=== PATIENT | female | born 1935 | race Caucasian/White ===

== ENCOUNTER 2017-03-23 18:50 | Inpatient (IN) | payer MEDICARE, OTHER ==
[2017-03-23 19:41] VITALS: BP 125/68
[2017-03-23] MEDS ORDERED: Magnesium Hydroxide (MOM) 30 mL UDC PO PRN (19:51)
[2017-03-23] MEDS ORDERED: Maalox 30 mL Cup PO PRN (19:51)
[2017-03-24 07:18] LABS: ANION GAP 10.4 (7.0-16.0); BUN - UREA NITROGEN 14 mg/dL (7-25); CALCIUM SERUM 9.6 mg/dL (8.6-10.3); CARBON DIOXIDE 28.4 mEq/L (21.0-31.0); CHLORIDE 104 mEq/L (98-107); GLUCOSE 98 mg/dL (70-105); POTASSIUM SERUM 3.8 mEq/L (3.5-5.1); SODIUM SERUM 139 mEq/L (136-145); VALPROIC ACID < 10.0 ug/mL (50.0-100.0)
[2017-03-24 07:28] LABS: % BASOPHILS 0.1 % (0.0-2.0); % EOSINOPHILS 4.2 % (0.0-5.0); % LYMPHOCYTES 25.3 % (20.0-50.0); % NEUTROPHILS 61.4 % (40.0-80.0); EOSINOPHILE ABSOLUTE 0.2 Th/cmm (0.1-0.4); HEMATOCRIT 42.8 % (41.0-60); HEMOGLOBIN 13.9 gm/dL (12-16); LYMPHOCYTE ABSOLUTE 1.1 Th/cmm (1.5-3.0); MEAN CELL VOLUME 94.3 fl (81-100); MEAN CORPUSCULAR HEMOGLOBIN 30.6 pg (27.0-31.0); MEAN CORPUSCULAR HGB CONC 32.4 pg (28.0-36.0); MEAN PLATELET VOLUME 8.6 fl; MONOCYTE ABSOLUTE 0.4 Th/cmm (0.3-1.0); NEUTROPHILE ABSOLUTE 2.6 Th/cmm (1.8-8.0); PLATELET COUNT 275 Th/cmm (150-400); RED BLOOD COUNT 4.54 Mil/cmm (3.80-5.20); RED CELL DISTRIBUTION WIDTH 13.1 % (11.5-20.0); WHITE BLOOD COUNT 4.3 Th/cmm (4.8-10.8)
[2017-03-24] MEDS: Multivitamin Tab PO SCH (09:24)
[2017-03-24] MEDS: Atorvastatin Calcium 10 MG TAB PO SCH (21:52)
[2017-03-24 21:57] LABS: A1C % 5.9 % (4.0-6.0)
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
[2017-03-25] MEDS: Multivitamin Tab PO SCH (09:51)
[2017-03-25 10:44] LABS: CHOLESTEROL 165 mg/dL (<200); HDL -HIGH DENSITY LIPOPROTEIN 51 mg/dL (23-92); TRIGLYCERIDES 99 mg/dL (<150)
--- NOTE | 2017-03-25 19:11 | Consultation ---
DATE OF CONSULTATION: 03/24/2017 INITIAL PSYCHIATRIC EVALUATION CHIEF COMPLAINT: "Why I'm here." HISTORY OF PRESENT ILLNESS AND JUSTIFICATION FOR ADMISSION: Brought in here, she is an 81-year-old with history of dementia, recently hallucinating, impaired and delusional. Today on [id number] evaluation extremely poor historian, unable to give much information. She mostly just perseverates as she needs to go somewhere, but she does not know exactly where she needs to be at, easily derails and thus not able to give much information. PAST PSYCHIATRIC HISTORY: Hospitalizations; unknown. PAST MEDICAL HISTORY: Pending medical evaluation, labs from the outside hospital. CT of the head unremarkable. MRI of the brain unremarkable. PAST PSYCHIATRIC HISTORY: Dementia. CURRENT MEDICATIONS: Include quetiapine 125 mg a day, benazepril 10 mg a day. FAMILY HISTORY: Unknown. PSYCHOSOCIAL ENVIRONMENTAL HISTORY: Denies any alcohol or illicit drug use. No sexual or physical or verbal abuse. MENTAL STATUS EXAMINATION: Easily irritable, disorganized, agitated, needing a lot of redirection. Poor insight, judgment and impulse control. Strength redirectable. Weaknesses: Poor coping skills. PRIMARY DIAGNOSIS: Dementia with behavior disturbance with psychosis. SECONDARY DIAGNOSIS: None. MEDICAL DIAGNOSIS: Medical evaluation pending. ASSESSMENT AND PLAN: An 81-year-old female, severely demented, aggressive, unable to formulate a plan. We will continue with Seroquel to target the patient's severe hallucination that she is experiencing. Primary estimated stay between 5-10 days. DISCHARGE CRITERIA: The patient is to demonstrate euthymic mood. We will obtain more collateral baseline information. [facility]# [id number]
[2017-03-25] MEDS: Atorvastatin Calcium 10 MG TAB PO SCH (20:35)
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
[2017-03-26] MEDS: Multivitamin Tab PO SCH (08:33)
[2017-03-26] MEDS: Atorvastatin Calcium 10 MG TAB PO SCH (20:58)
--- NOTE | 2017-03-26 23:11 | Progress Notes ---
DATE: 03/26/[address] Arriaga. Case was discussed with staff of the patient, reviewed records. This is an 81-year-old female who was admitted on the 03/23/2017 because of hallucination, delusional. The patient was a poor historian, unable to give much information. She perseverates, does not know exactly where she needs to be and she was dwelled easily, very poor insight. The patient continues to be disorganized, disheveled, malodorous, in and out. Continues to be unpredictable, impulsive, needing redirection. She isolates herself in the room. She is compliant with the medication, no side effects. She is on Aricept 10 mg at bedtime, multivitamin and Seroquel 25 mg a day with no side effects, no sedation, no nausea, and no extrapyramidal symptoms. We will continue outpatient group therapy, milieu therapy, adjust medication as needed. JOB# [id number]
[2017-03-27] MEDS: Multivitamin Tab PO SCH (08:33)
--- NOTE | 2017-03-27 16:19 | Progress Notes ---
DATE: 03/27/[address] Arriaga. Case was discussed with staff of the patient, reviewed records. The patient continues to be unpredictable, impulsive, continues to be a poor historian. The patient continues to have poor insight, disorganized, consisting unable to make safe plan for self-care, isolate herself. She has been compliant for the medication with no side effects, no sedation, no nausea, no extrapyramidal symptoms. We will continue to work with the patient in group therapy, milieu therapy, adjust medication as needed. JOB# [id number]
[2017-03-27] MEDS: Atorvastatin Calcium 10 MG TAB PO SCH (21:33)
[2017-03-28] MEDS: Multivitamin Tab PO SCH (08:42)
[2017-03-28] MEDS: Atorvastatin Calcium 10 MG TAB PO SCH (20:56)
--- NOTE | 2017-03-29 06:20 | Progress Notes ---
DATE: 03/28/2017 Chart reviewed and the patient interviewed. Also discussed the patient's condition with the staff and reviewed records and labs. The patient is manicky and hyper today. During my interview, the patient continuously was dancing and shaky and with pressured speech and hypertalkative. The patient also is still confused and she is still restless and needs lots of redirections. She also is still easily agitated and easily irritable. Otherwise, the patient is compliant with taking her medications with no side effect of medications. ASSESSMENT: The patient is still confused and manic. TREATMENT PLAN: Continue Aricept and Seroquel same dose. Also, continue to monitor her behavior and work on behavior modification. JOB# [id number]
[2017-03-29] MEDS: Multivitamin Tab PO SCH (09:22)
[2017-03-29] MEDS: Atorvastatin Calcium 10 MG TAB PO SCH (21:21)
[2017-03-30] MEDS: Multivitamin Tab PO SCH (09:29)
[2017-03-30] MEDS: Atorvastatin Calcium 10 MG TAB PO SCH (21:21)
--- NOTE | 2017-03-31 01:03 | Progress Notes ---
DATE: 03/29/2017 SUBJECTIVE: Chart reviewed and the patient interviewed. Also discussed the patient's condition with the staff and reviewed records and labs. The patient is still severely suspicious and still paranoid. The patient also is still confused and she does not think that she is in the hospital and she does not think that she needs to be in the hospital. She also keeps looking from the window in her room, thinking that someone outside the window is watching her. She also is still isolative and not talking much. The patient also is still easily agitated and she is paranoid and wants to be left alone. Otherwise, the patient is compliant with taking her medications with no side effects of medications. ASSESSMENT: The patient is still suspicious and paranoid and still psychotic. TREATMENT PLAN: We will continue to monitor her behavior and her condition closely. Also, continue psychotropic medications and followup. JOB# [id number]
[2017-03-31] MEDS: Multivitamin Tab PO SCH (09:10)
--- NOTE | 2017-03-31 17:06 | Progress Notes ---
DATE: 03/30/2017 SUBJECTIVE: Chart reviewed and the patient interviewed. Also discussed the patient's condition with the staff and reviewed records and labs. The patient is still confused and she is still pacing up and down the unit and she is still wandering around the unit. She also is still restless and she is still in angry and in irritable mood. The patient also is interacting minimally with others and she is entering other patient's rooms in a confused state. Otherwise, the patient is compliant with taking her medications and the patient denies any side effects of medications. ASSESSMENT: The patient is still confused and psychotic and seems to be depressed. TREATMENT PLAN: Continue current medications and treatment plan. Continue to monitor her behavior closely. Also, continue to work on possible placement issue and followup. JOB# [id number]
[2017-03-31] MEDS: Atorvastatin Calcium 10 MG TAB PO SCH (20:35)
[2017-04-01] MEDS: Multivitamin Tab PO SCH (08:53)
[2017-04-01] MEDS: Atorvastatin Calcium 10 MG TAB PO SCH (21:27)
[2017-04-02] MEDS: Multivitamin Tab PO SCH (09:12)
--- NOTE | 2017-04-02 12:11 | Progress Notes ---
DATE: 03/31/2017 SUBJECTIVE: Chart reviewed and the patient interviewed. Also discussed the patient's condition with the staff and reviewed records and labs. The patient still wanders around the unit in a confused state. She also is still restless and easily agitated. The patient also is hyper-muslim. Otherwise, the patient is compliant with taking her medications with no side effects of medications. ASSESSMENT: The patient is still confused and agitated. TREATMENT PLAN: Continue to monitor her behavior and her condition closely. Also, continue to work on her ineffective coping and continue to follow up. [facility]# [id number]
[2017-04-02] MEDS: Atorvastatin Calcium 10 MG TAB PO SCH (21:40)
[2017-04-03] MEDS: Multivitamin Tab PO SCH (09:56)
[2017-04-03] MEDS: Atorvastatin Calcium 10 MG TAB PO SCH (20:41)
--- NOTE | 2017-04-04 07:25 | Progress Notes ---
DATE: 04/01/2017 SUBJECTIVE: Chart reviewed and the patient interviewed. I also discussed the patient's condition with the staff and reviewed records and labs. The patient seems to be calmer than before. The patient also has been cooperative with care. She is still confused and forgetful and needs lots of redirection, but at the same time, she is less agitated and less irritable. She also has been compliant with taking her medications with no side effects of medications. ASSESSMENT: The patient showed some improvement. TREATMENT PLAN: Continue to monitor her behavior and her condition closely. Also, continue adjusting psychotropic medications and work on behavioral modification. JOB# [id number]
[2017-04-04] MEDS: Multivitamin Tab PO SCH (08:58)
[2017-04-04] MEDS: Atorvastatin Calcium 10 MG TAB PO SCH (21:22)
--- NOTE | 2017-04-05 00:06 | Progress Notes ---
DATE: 04/02/2017 SUBJECTIVE: Chart reviewed and the patient interviewed. Also discussed the patient's condition with the staff and reviewed records and labs. The patient is still confused and forgetful. The patient also is still agitated and she is still in irritable mood. She also still needs constant redirections. The patient also is restless and agitated. Otherwise, the patient is compliant with taking her medications with no side effects of medications. ASSESSMENT: The patient is confused and needs lots of redirections. TREATMENT PLAN: Continue monitoring her behavior and her condition closely. Also, continue adjusting psychotropic medications and followup. JOB# [id number]
[2017-04-05] MEDS: Multivitamin Tab PO SCH (09:06)
[2017-04-05] MEDS: Atorvastatin Calcium 10 MG TAB PO SCH (21:49)
[2017-04-06] MEDS: Multivitamin Tab PO SCH (08:09)
--- NOTE | 2017-04-06 09:55 | Progress Notes ---
DATE: 04/03/2017 SUBJECTIVE: Chart reviewed and the patient interviewed. Also discussed the patient's condition with the staff and reviewed records and labs. The patient is still forgetful and confused. The patient also needs constant redirections. The patient also is still agitated, but it seems that her agitation slightly less than before. The patient also is compliant with taking her medications with no side effect of medications. ASSESSMENT: The patient is still confused, but less agitated. TREATMENT PLAN: Continue to monitor her behavior and her condition closely. Also, working with transplant case manager in regard to placement issue and discharge plans. JOB# [id number]
--- NOTE | 2017-04-06 11:40 | Progress Notes ---
DATE: SUBJECTIVE: Chart reviewed and the patient interviewed. The patient also discussed the patient's condition with the staff and reviewed records and labs. The patient is still confused and she is still wandering on and off. The patient seems to be slightly calmer and she is more pleasant and cooperative. The patient also started ____ compliance taking her medications with no side effect of medications. ASSESSMENT: The patient is still confused and seems to be depressed. TREATMENT PLAN: Continue monitoring her behavior and her condition closely. Also, adjusting psychotropic medications and followup. [facility]# [id number]
--- NOTE | 2017-04-06 12:46 | Progress Notes ---
DATE: 04/05/2017 SUBJECTIVE: Chart reviewed and the patient interviewed. Also discussed the patient's condition with the staff and reviewed records and labs. The patient continued to be calm and cooperative. The patient also seems to be quieter and less irritable and less agitated. She also is interacting more. The patient denies any intention to harm herself or others and she seems to be more pleasant. Otherwise, the patient is compliant with taking her medications. ASSESSMENT: The patient is less depressed and less psychotic. TREATMENT PLAN: Continue to monitor her behavior and her condition closely. Also, continue adjusting psychotropic medications and working on discharge plans and placement issue. [facility]# [id number]
--- NOTE | 2017-04-06 19:54 | Progress Notes ---
DATE: SUBJECTIVE: Chart reviewed and the patient interviewed. Also discussed the patient's condition with the staff and reviewed records and labs. The patient is still agitated and she is suspicious and paranoid. The patient also is restless and she has difficulty following staff directions and she is still resisting care. She also has difficulty trusting people. She also gets verbally aggressive to staff. The patient also reports during the day, some visual hallucinations, but cannot deliberate on it. ASSESSMENT: The patient is still agitated and aggressive. TREATMENT PLAN: We will continue monitoring her behavior and her condition closely. Also, we will increase Seroquel to 25 mg twice a day. Also, continue to work on behavioral modification and agitation. Also, bilingual patient support caseworker continued to work on placement issue and working on discharge plans. JOB# [id number]
[2017-04-06] MEDS: Atorvastatin Calcium 10 MG TAB PO SCH (20:47)
[2017-04-07] MEDS: Multivitamin Tab PO SCH (08:29)
--- NOTE | 2017-04-07 20:43 | Progress Notes ---
DATE: 04/07/2017 SUBJECTIVE: The patient was seen on 04/07/2017. The patient with history of dementia, hallucinating, impaired, delusional, poor historian, not giving much information, irritable when asked her why she is here, she does not know. She just states that she has been here for 7 days and it has been significantly longer than that. The patient asked me to leave her alone, so that she can sleep. Dr. Arriaga seeing the patient over the past few days, noting that she remains agitated, suspicious, paranoid, and occlusive. MEDICATIONS: Reviewed including doses and frequencies. ASSESSMENT: The patient remains symptomatic, agitated at times, aggressive, suspicious. PLAN: We will continue to monitor, the patient quite confused. Given the ongoing symptoms, she is not safe for discharge. [facility]# [id number]
[2017-04-08] MEDS: Atorvastatin Calcium 10 MG TAB PO SCH ×2 (00:14→21:59)
[2017-04-08] MEDS: Multivitamin Tab PO SCH (08:27)
--- NOTE | 2017-04-08 21:32 | Progress Notes ---
DATE: 04/08/2017 SUBJECTIVE: The patient with history of dementia, hallucinations, delusional, poor historian, not answering most questions appropriately, confused, does not know why she is here, not wanting to engage during interview, somewhat irritable. She is fairly reclusive. The patient is sleeping fairly well, eating with some prompting. Medications were reviewed. ASSESSMENT: The patient remains symptomatic, irritable. She is somewhat calmer. No aggressiveness noted. PLAN: We will continue to monitor. The patient remains irritable, confused and not so amenable to interview this morning, she did not want to talk to me yesterday either. No overt hallucinating. She seems to be improving in regards to her overt psychotic symptoms. [facility]# [id number]
[2017-04-09] MEDS: Multivitamin Tab PO SCH (09:59)
--- NOTE | 2017-04-10 01:44 | Discharge Summary ---
DATE OF DISCHARGE: 04/09/2017 JUSTIFICATION FOR HOSPITALIZATION: Hallucinating, psychotic and delusional. HISTORY OF PRESENT ILLNESS: An 81-year-old female with history of cognitive decline and dementia, hallucinating, impaired cognition, poor historian, perseverative. PAST MEDICAL HISTORY: Noted. PAST PSYCHIATRIC HISTORY: Dementia. FAMILY HISTORY: Unknown. SOCIAL HISTORY: Noted. MENTAL STATUS EXAMINATION: Please see full psych eval for details. PROVISIONAL DIAGNOSES: Dementia with behavioral disturbances; psychosis, unspecified. HOSPITAL COURSE: After initial assessment, the patient was admitted to the hospital, noted to be with improvement, albeit slowly. She did remain somewhat isolative and occlusive and irritable, but as the hospital course progressed, she was somewhat more sociable and engaged, still remains somewhat irritable, but denying any overt SI or HI. No overt psychotic symptoms, no longer hallucinating. No combative behaviors. MEDICATIONS: Reviewed and she was tolerating well, devoid of side effects. CONDITION UPON DISCHARGE: Improved. Better attention ADLs. Fair eye contact. Speech within normal limits. Mood "fine." Affect constricted. Thought processes remain somewhat disoriented. No SI, no HI, no intent, no plan. No overt psychotic symptoms. Insight and judgment improved. DISCHARGE DIAGNOSES: Dementia with behavioral disturbances, also psychosis, unspecified. MEDICAL: Please see full H and P. PROGNOSIS: The patient follows up with outpatient mental health services and remains treatment compliance, prognosis will improve, otherwise guarded. [facility]# [id number]
== END 2017-04-09 15:50 | DRG 885 ==
LOC: GERO 18:50
PROVIDERS: ADMIT Psychiatry & Neurology Psychiatry; ATTEND Psychiatry & Neurology Psychiatry
DX: F29 Unspecified psychosis not due to a substance or known physiological condition (principal); F02.81 Dementia in other diseases classified elsewhere, unspecified severity, with behavioral disturbance; G30.9 Alzheimer's disease, unspecified; E78.5 Hyperlipidemia, unspecified; Z86.73 Personal history of transient ischemic attack (TIA), and cerebral infarction without residual deficits; Z88.5 Allergy status to narcotic agent
CPT/HCPCS: 36415-UA; 80048-TC; 80061-TC; 80164-TC; 82948-90; 83036-90; 84443-TC; 85025-TC; 90899; G0410; Z7610